=== PATIENT | male | born 2000 | race Caucasian/White ===

== ENCOUNTER 2019-08-21 10:42 | Observation (INO) ==
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
[~2019-08-21 10:42] MED LIST: CEFAZOLIN 2000MG 2,000 MG/15 ML SYR IV SCH; GABAPENTIN 900 MG DOSE PO SCH; LR 15ML/HR IV SCH; LR 60ML/HR IV SCH
[2019-08-21] MEDS ORDERED: fentaNYL citrate 100 MCG/2 ML VIAL ONE ×6 (11:43→17:47)
[2019-08-21] MEDS ORDERED: ONDANSETRON INJ 2 MG/ML 2 ML VIAL ONE ×2 (11:43→15:26)
[2019-08-21] MEDS ORDERED: MIDAZOLAM HCL 1 MG/ML 2ML VIAL ONE (11:43)
[2019-08-21] MEDS ORDERED: LIDOCAINE HCL 2% 2 ML VIAL/AMP(20MG/ML) INFIL ONE (11:43)
[2019-08-21] MEDS ORDERED: PROPOFOL IV EMULSION 10 MG/ML 20 ML VIAL IV ONE ×2 (11:43→13:25)
[2019-08-21] MEDS ORDERED: DEXAMETHASONE SOD INJ 4 MG/ML VIAL ONE ×3 (11:43→18:04)
[2019-08-21] MEDS ORDERED: SCOPOLAMINE 1.5 MG TDSY TD ONE (12:21)
[2019-08-21] MEDS ORDERED: fentaNYL citrate 100 MCG/2 ML VIAL IV PRN (12:22)
[2019-08-21] MEDS ORDERED: ONDANSETRON INJ 2 MG/ML 2 ML VIAL IV PRN ×2 (12:22→20:54)
[2019-08-21] MEDS ORDERED: ePHEDrine sulfate 50 MG/ML AMP IV PRN (12:22)
[2019-08-21] MEDS ORDERED: ATROPINE SULFATE 0.1 MG/ML 10ML SYR IV PRN (12:22)
[2019-08-21] MEDS ORDERED: BUPIVACAINE/EPINEPHRINE 0.25% 1:200,000 30 ML VIAL ONE ×2 (12:24→20:17)
[2019-08-21] MEDS ORDERED: SODIUM CHLORIDE 0.9% PF 50 ML VIAL ONE (12:25)
[2019-08-21] MEDS ORDERED: BUPIVACAINE 0.5 % 5 MG/1 ML PF 10ML VIAL ONE (12:37)
--- NOTE | 2019-08-21 12:58 | History & Physical Bridge Note ---
Date of Service August 21, 2019 History & Physical Bridge Note I have examined the patient, reviewed the History & Physical and in the interval since the performance of the History & Physical I have noted the following changes of clinical significance: no changes noted
[2019-08-21] MEDS ORDERED: CHECK SCOPOLAMINE PATCH PLACEMENT SCH (16:00)
[2019-08-21] MEDS ORDERED: CEFAZOLIN 250 MG/ML 1 GM VIAL ONE (17:04)
[2019-08-21] MEDS ORDERED: CEFAZOLIN 1000MG 1,000 MG/7.5 ML SYR IV ONE (17:45)
[2019-08-21] MEDS ORDERED: CEFAZOLIN 1000MG 1,000 MG/7.5 ML SYR IV SCH (18:00)
[2019-08-21] MEDS ORDERED: CEFAZOLIN 1000MG 1,000 MG/7.5 ML SYR IV STA (18:24)
--- NOTE | 2019-08-21 19:57 | Post Operative Brief Note ---
PG Immediate Post Op with CF Date of Surgery August 21, 2019 Pre & Post Diagnosis Operation Date: 08/21/19 12:30 Pre-Op Diagnosis: Left knee medial collateral ligament tear, left knee lateral meniscus tear Post-Op Diagnosis: Left knee medial collateral ligament tear, left knee lateral meniscus tear I identified the patient and participated in the time-out.: Yes Procedure Operation Date: 08/21/19 12:30 Actual Procedures p Left Knee Arthroscopy With Open Medial Collateral Ligament Repair, Lateral M eniscus Repair And Exam Under Anesthesia(Left) - Arsalan Valencia Surgeon Arsalan Valencia Fondant Puff Maker Starr Estimated Blood Loss 100 Findings Consistent with Post-Op Diagnosis Specimens Specimen Description: None collected per surgeon
--- NOTE | 2019-08-21 20:44 | Anesthesiology Progress Note ---
Date of Service August 21, 2019 Anesthesia Post Procedure Vital Signs Vital Signs: Temp Pulse Resp BP BP Pulse Ox 08/21/19 20:30 86 14 126/72 100 08/21/19 20:20 67 13 128/78 100 08/21/19 20:10 79 16 134/81 100 08/21/19 20:00 74 10 L 125/84 100 08/21/19 19:50 36.1 C L 90 11 L 123/81 100 08/21/19 11:20 36.9 C 78 20 113/68 100 Pain Intensity Left Leg: Pain Intensity: 6 Transfer of Care Handoff Completed per policy Notes Mental Status: alert / awake / arousable and participated in evaluation Patient Amnestic to Procedure: Yes Nausea / Vomiting: adequately controlled Pain: adequately controlled Airway Patency, RR, SpO2: stable & adequate BP & HR: stable & adequate Hydration State: stable & adequate Anesthetic Complications: no major complications apparent and Pt Satisfied with anesthetic care Notes: pt c/o 6/10 pain on awakening though no 2/2 signs of pain. pt feel back to sleep. pt has hx of pain out of proportion to exam and opioid use disorder. given the pt hx and a discussion with dr fide pepper performed a femoral nerve block. us guided. sterile prep/mask/gloves/probe cover. 50 inch needle used. 30 ml 0.25% bupivicaine with epi injected. aspiration negative every 5ml. pt tolerated well
[2019-08-21] MEDS ORDERED: POLYETHYLENE (MIRALAX) 17 GM PACK PO PRN (20:54)
[2019-08-21] MEDS ORDERED: MAGNESIUM HYDROXIDE SUSP 30 ML UDC PO PRN (20:54)
[2019-08-21] MEDS ORDERED: bisacodyL 10 MG SUPP PR PRN (20:54)
[2019-08-21] MEDS ORDERED: DiphenhydrAMINE HCL 50 MG/ML VIAL IV PRN (20:54)
[2019-08-21] MEDS ORDERED: NALOXONE HCL 0.4 MG/1 ML VIAL/CARP IV PRN ×2 (20:54)
[2019-08-21] MEDS ORDERED: ALBUTEROL HFA 8 GM INHALER INH PRN (20:54)
[2019-08-21] MEDS ORDERED: SODIUM CHLORIDE 0.9% 1000ML 1,000 ML IV SCH (20:54)
[2019-08-21] MEDS ORDERED: METOCLOPRAMIDE HCL INJ 5 MG/ML 2 ML VIAL IV PRN (20:54)
[2019-08-21] MEDS ORDERED: HYDROmorphone INJ 1 MG/ML SYRINGE IV PRN (20:54)
[2019-08-21] MEDS ORDERED: FLUTICASONE PROPIONATE NA SPR 16 GM BTL PRN (20:54)
--- NOTE | 2019-08-21 20:55 | Operative Report ---
PG Post Operative Report Pre & Post Diagnosis Operation Date: 08/21/19 12:30 Pre-Op Diagnosis: Left knee medial collateral ligament tear, left knee lateral meniscus tear Post-Op Diagnosis: Left knee medial collateral ligament tear, left knee lateral meniscus tear I identified the patient and participated in the time-out.: Yes Procedure Operation Date: 08/21/19 12:30 Actual Procedures p Left Knee Arthroscopy With Open Medial Collateral Ligament Repair, Lateral Meniscus Repair And Exam Under Anesthesia(Left) - Arsalan Valencia Surgeon Arsalan Valencia Customer Contact Representative Starr Estimated Blood Loss 100 Findings See Below EUA demonstrated range of motion from 0 to 90 degrees after manipulation. He had a grade 3 MCL disruption. The LCL was intact. He had a negative anterior drawer and a positive posterior drawer. Stress fluoroscopy revealed grade 2 PCL tear. Arthroscopic exam demonstrated intact cruciate ligaments. He had obvious widening of the medial compartment and normal lateral compartment opening. There was a flipped bucket-handle lateral meniscus tear that was reducible after releasing scar about the body of the meniscus as it laid in the notch. It was fixed with a combination of all inside along the posterior horn and inside out sutures along the body and outside in sutures along the anterior horn. A double row open MCL repair including the deep and superficial layers, with imbrication of the posterior oblique ligament and capsule and additional 2 limb internal brace was performed. Specimens None Anesthesia Type General Regional Complications none Disposition Accompanied Patient To Recovery: No Disposition: Recovery Room Indications 18-year-old male who sustained a closed segmental femur fracture in addition to a multi-ligament knee injury resulting in MCL avulsion with Stener lesion. He was referred to our orthopedic sports clinic to address his lateral meniscus tear and MCL avulsion. Given his blocking motion and flipped lateral meniscus and acute MCL avulsion, I did recommend subacute surgery to address these injuries before they were not salvageable for primary repair. We discussed evaluation of the knee under anesthesia in regards to his cruciate integrity. We discussed this might be staged surgery to address his multi-ligament injury, depending on the outcome of the surgery. He was coming by his parents in clinic. They all demonstrated good understanding and asked appropriate questions. Informed consent was obtained in clinic. Description of Procedure On the day of surgery, the patient was greeted in the preoperative holding area. The informed consent was reviewed and confirmed by myself and the patient. The patient identified the surgical site and was marked by me. The patient was then turned over to anesthesia. Anesthesia performed a regional anesthetic block with excellent effect. Patient was then taken to the operating place upon the OR table and anesthesia was induced. The airway was secured. He was placed supine. All bony prominences well-padded. Surgical timeout was called by the circulating nurse and verified by all present. We initiated the case by insufflation the joint with a solution of 60 cc containing 30 cc of quarter percent Marcaine with epinephrine diluted with 30 cc of normal saline. Then performed a manipulation under anesthesia which did achieve an additional 30 degrees of motion to at least 90. At that point it felt that it is extensor mechanism was supple. I did not feel comfortable pushing additionally while he has a segmental femur fracture and a recently traumatized extremity. He had adequate motion for the arthroscopic meniscal repair. Using large C-arm fluoroscopy of a thorough diagnostic examination anesthesia wa s performed with the findings listed above. Essentially had a grade 3 MCL injury and grade 2 PCL injury. We then proceeded to the arthroscopic portion. Standard anterolateral portal was created and the scope trocar was introduced. Diagnostic arthroscopy was carried out. We created a standard working portal medially using a spinal needle for localization. A probe is introduced and that that diagnostic fluoroscopy was conducted with the findings listed above. We direct our attention immediately to the lateral compartment. The flipped lateral meniscus bucket-handle tear was evident. We attempted meniscal repair by first reducing bucket-handle meniscus tear. It did require sequential elevation using a Castile along the ACL where it was scarred against. Once it freed up it was reducible. We then prepared the meniscal capsular junction using a motorized shaver and ball rasp to create a bleeding soft tissue bed for repair. We started by placing 1 all inside suture anchor in the back. Unfortunately it did not hold while we did the open approach. The knee was positioned at 90 degrees to expose the lateral border. A longitudinal incision was made in line with the posterior aspect of the LCL. Soft tissue dissection was carried out and Bovie electrocautery was used for hemostasis. The posterior aspect of the IT band was exploited. We created a window which allowed dissection along the posterior capsule with caution for the nearby peroneal nerve. The investing fascia from the biceps was opened to allow access to this window. A Phoenix retractor was then placed just anterior to the lateral gastroc head to protect the posterior structures. Then returned to the arthroscopic portion. Again, the all inside sutures did not hold. We had to re-reduce the bucket-handle. Once was reduced we used the Arthrex zone navigator to begin our repair. We placed several vertically oriented mattress sutures along the superior border of the body. We then placed 1 just anterior to the popliteal hiatus. We then placed another vertical mattress suture on the underside of the tibial aspect of this body. All sutures were retrieved through the open incision. Some of the sutures did end up percutaneous anteriorly and away from the nerve. We then used all inside suture technique x3 anchors along the posterior horn with 2 on the femoral side and 1 on the tibial side. This reduced the tissue well. We then pinned over to the anterior horn and the meniscocapsular separation was evident. We created a small portal size incision anterior laterally on the knee. This was used to place 2 outside in repair stitches using a micro-suture lasso and spinal needle. Fiber tape suture was used by shuttling. This completed our suturing of the meniscus. We then exited the joint with the arthroscopic instrument. I then retrieved all sutures through the posterior lateral incision as well as the accessory anterolateral incision. Firm knots were tied in an open manner reducing the tissue well. The arthroscope was placed back in the knee and the postrepair arthroscopic exam demonstrated a stable meniscus with good vertically oriented sutures on the femoral and tibial side. The popliteal tendon was not involved in repair. There is no significant cartilage loss however there was distinct softening with grade 2 changes over the lateral femoral condyle in the area of the injury corresponding with the MRI. We then evaluated the cruciate ligaments. The appear to be intact with abundant synovium. The ACL had normal behavior through it dynamic exam. The PCL was well covered in synovium and I did not see the benefit to taking that down to evaluate it. Appear to be under normal tension on the femoral side. The tibial side was able to be evaluated through the Gi lcrest portal given the MCL laxity. The medial compartment is reevaluated and again there was no chondral or meniscal damage. There was obvious disruption of the deep MCL. We then thoroughly irrigated the lateral compartment wounds. The knee was then repositioned slight external rotation knee flexion of 30 degrees still revealed the medial side of the knee. A longitudinal incision was made for the medial epicondyle distally onto the midline of the medial tibia. Soft tissue dissection was carried out with Bovie used for electrocautery. No tourniquet was used due to his history of vascular procedure. We exposed the sartorial fascia was opened in line and this was carried up to the epicondyle. Was also carried down distally towards the insertional footprint of the MCL underneath the hamstrings. The hamstrings were retracted posteriorly and inferiorly to expose the footprint. The MCL tissue was scarred and balled up on the proximalmost aspect of the footprint. A aguilar elevator was used to elevate this sleeve en bloc. There was disruption of the deep fibers that was evident. I was able to separate these layers to allow reapproximated the deep layer or the meniscotibial ligament. We then placed 2 three-point 0 suture tack anchors of bio composite material, which were double loaded along the tibial rim with 1 anterior and one posterior. The sutures were then passed with a free needle up through the meniscotibial ligament and to a corresponding position on the superficial tissue to go through and through both layers. These are spread out along the torn portion of the deep meniscotibial ligament. The posterior sutures were then passed through the identifiable layer the posterior oblique ligament. These were passed in a pants over vest fashion to create an imbric ation of this given his laxity. Additional mattress sutures were placed in a similar fashion in the posterior oblique ligament connecting it to the more superficial portion of the MCL. Once had good control of the sleeve firm knots were tied down with the knee held at 30 degrees of flexion and varus stress. This repaired our deep and superficial layers down proximally. Then cleared out the footprint and plan to put 2 additional anchors anterior distal and posterior proximal. We then moved to the femoral side. The epicondyle was exposed. Fluoroscopy was used to identify the insertional site of the origin of the MCL. This was just posterior to the epicondyle. Drill pins were placed at the anchor positions to ensure isometry. Original medial epicondyle pin was accurate. We then drilled the socket over a guidepin to 4.5 mm diameter. It was then tapped for 4.75 swivel lock anchor which was deployed into this MCL origin space after being preloaded with long fiber tape suture. 2 limbs were then patent taken distally. We then performed our double row MCL repair. The suture tails of the 3-0 suture tack anchors were taken in a crossing pattern distally. The 2 most medial limbs were crisscrossed distally to our distal anchors. The anterior inferior anchor contained one limb of the internal brace while the posterior superior anchor contained the other. The suture tails from our repair stitches were tensioned with varus stress at 0 and 30 degrees respectively. The internal brace limbs were independently tensioned for more laxity, with greatest tension in full extension. The posterior superior 1 was placed in slight degree more of extension to replicate support for the posterior oblique ligament. Then thoroughly irrigated this open surgical site of the MCL. The investing sartorius layer was approximated using 0 Vicryl suture in a running and locking repair. Subcutaneous tissues were then approximated using 2-0 Vicryl suture. Final skin closure was performed using brando. The lateral incision was then thoroughly irrigated and closed in a similar fashion, with 0 Vicryl suture repairing the fascial layer, followed by 2-0 sutures in the deep dermis and subcuticular layer. Final skin closure was performed using brando. The portals were closed with interrupted 3-0 Monocryl suture with a buried knot. Wounds are dressed with sterile Xeroform, sterile gauze, sterile ABD and web roll. The dressing was then contained by a KESHA hose applied to the lower extremity. Standard range of motion brace locked in full extension was then applied. It was set for range of motion 0 to 90 degrees when unlocked. Patient tolerated procedure well without tourniquet. He was extubated the operative without complication and transported to the recovery area in good condition. Disposition: The patient will be flatfoot weightbearing for 4 weeks with the brace locked in full extension. He will moved to partial weightbearing for weeks 5 and 6 with progressive weightbearing after 6 weeks. He will have range of motion limited from 0-90 for the first 6 weeks. After that he will need some focused therapy to achieve improve range of motion given his stiffness. He will use routine postoperative pain management with supplemental block as needed. He will be admitted observation given the hour the evening, degree of blood loss from his recent trauma surgeries and today's anesthetics, and expected postoperative pain. For DVT prophylaxis, we will restart his Lovenox 30 mg every day on postop day 1 with the addition of baby aspirin. At 6 weeks postop he can transition to full dose aspirin until 6 weeks post the surgery. Surgical outcome and findings were explained to his parents. I attest to the content of the Intraoperative Record and any orders documented therein. Any exceptions are noted below.
[2019-08-21] MEDS ORDERED: MONTELUKAST SODIUM 10 MG TABLET PO SCH (21:00)
[2019-08-21] MEDS ORDERED: DOCUSATE SODIUM 100 MG CAP PO SCH (21:00)
[2019-08-21] MEDS ORDERED: SENNA 8.6 MG TAB PO SCH (21:00)
--- NOTE | 2019-08-21 21:19 | Fluoroscopy Report ---
FL knee LT 1 or 2V HISTORY: 18 years-old Male LEFT KNEE acute left knee pain COMPARISON: CT the left femur 08/03/2019 TECHNIQUE: 10 spot fluoroscopic images of the left knee were obtained utilizing 36.8 seconds fluorosc opy time FINDINGS: Partially imaged medullary nubia with 2 distal cannulated screws about the distal femur. The visualized hardware appears intact. No acute fracture, dislocation or opaque foreign body identified. On the la st image, there is a linear metallic density structure overlying the posterior aspect of the femoral condyles. Expected post procedural soft tissue swelling and deep tissue air. IMPRESSION: Fluoroscopic assistance as above. Please see procedural report for further details. ACT 112: Negative or not required by law. The above report was generated using voice recognition software. It may contain grammatical, syntax o r spelling errors. Electronically signed by: Isiah Crenshaw M.D. 08/21/2019 9:18 PM
[2019-08-21] MEDS ORDERED: CYCLOBENZAPRINE HCL 10 MG TAB PO PRN (21:28)
[2019-08-21] MEDS: OXYCODONE HCL IR 5 MG TAB (IMMEDIATE RELEASE) PO PRN (22:25)
[2019-08-21] MEDS: DOCUSATE SODIUM 100 MG CAP PO SCH (22:27)
[2019-08-21] MEDS: ACETAMINOPHEN 1,000 MG/100 ML VIAL IV SCH (22:27)
[2019-08-21] MEDS: CEFAZOLIN 2000MG 2,000 MG/15 ML SYR IV SCH (22:27)
[2019-08-22] MEDS: OXYCODONE HCL IR 5 MG TAB (IMMEDIATE RELEASE) PO PRN ×4 (02:26→15:56)
[2019-08-22 05:25] LABS: Basophils # (auto) 0.02 K/uL (0-0.2); Basophils % (auto) 0.1 %; Hematocrit (blood only) 31.1 % (42-52); Hemoglobin 10.4 g/dL (14.0-18.0); Immature Granulocytes # (auto) 0.05 K/uL (0.00-0.02); Immature Granulocytes % (auto) 0.3 %; Lymphocytes # (auto) 1.79 K/uL (1.2-3.4); Lymphocytes % (auto) 9.6 %; Mean Corpuscular Hemoglobin 28.4 pg (25-34); Mean Corpuscular Hgb Conc 33.4 g/dL (32-36); Mean Platelet Volume 10.6 fL (7.4-10.4); Monocytes # (auto) 1.65 K/uL (0.11-0.59); Monocytes % (auto) 8.9 %; Neutrophils # (auto) 15.08 K/uL (1.4-6.5); Neutrophils % (auto) 81.1 %; Platelet Count 312 K/uL (130-400); RDW Coefficient of Variation 14.3 % (11.5-14.5); RDW Standard Deviation 44.8 fL (36.4-46.3); Red Blood Count 3.66 M/uL (4.7-6.1); White Blood Count 18.59 K/uL (4.8-10.8)
[2019-08-22 05:58] LABS: BUN Creatinine Ratio 14.1 (10-20); Calcium 8.5 mg/dl (8.5-10.1); Creatinine Clr Calc Pharmacy 125.1 ml/min; Est GFR (African American) 145.7; Est GFR (Non-African American) 125.7; Potassium 4.1 mmol/L (3.5-5.1)
[2019-08-22] MEDS: CEFAZOLIN 2000MG 2,000 MG/15 ML SYR IV SCH (06:14)
[2019-08-22] MEDS: ACETAMINOPHEN 1,000 MG/100 ML VIAL IV SCH ×2 (06:15→13:06)
[2019-08-22] MEDS: DOCUSATE SODIUM 100 MG CAP PO SCH (07:41)
[2019-08-22] MEDS: ASCORBIC ACID 500 MG TAB PO SCH ×2 (07:41→16:14)
--- NOTE | 2019-08-22 07:46 | Anesthesiology Progress Note ---
Date of Service August 22, 2019 Anesthesia Post Procedure Vital Signs Vital Signs: Temp Pulse Pulse Resp BP BP Pulse Ox 08/22/19 03:35 36.7 C 95 H 16 125/65 99 08/21/19 23:55 36.5 C 86 16 131/70 100 08/21/19 22:54 85 14 131/72 100 08/21/19 21:58 36.4 C L 85 14 125/67 100 08/21/19 21:30 36.5 C 83 18 131/72 100 08/21/19 20:55 36.4 C L 87 18 145/75 H 100 08/21/19 20:40 36.3 C L 86 14 131/67 100 08/21/19 20:30 86 14 126/72 100 08/21/19 20:20 67 13 128/78 100 08/21/19 20:10 79 16 134/81 100 08/21/19 20:00 74 10 L 125/84 100 08/21/19 19:50 36.1 C L 90 11 L 123/81 100 08/21/19 11:20 36.9 C 78 20 113/68 100 Pain Intensity Left Leg: Pain Intensity: 6 Notes Mental Status: alert / awake / arousable and participated in evaluation Patient Amnestic to Procedure: Yes Nausea / Vomiting: adequately controlled Pain: adequately controlled Airway Patency, RR, SpO2: stable & adequate BP & HR: stable & adequate Hydration State: stable & adequate Anesthetic Complications: no major complications apparent and Pt Satisfied with anesthetic care
[2019-08-22 07:49] VITALS: O2SAT 100
--- NOTE | 2019-08-22 07:53 | Orthopedic Progress Note ---
Date of Service August 22, 2019 Assessment & Plan (1) S/P MCL repair: (2) S/P lateral meniscal repair: Continue PT/OT Dressing: Will not need to change dressings until 3 days post op unless new evidence of discharge/drainage seen through dressings. Will continue to monitor. Delta will be removed 2 weeks post op in Orthopedic clinic. Flat foot weight bearing as tolerated with strict extension bracing locked in full extension extension. For DVT prophylaxis, we will restart his Lovenox 30 mg every day on postop day 1 with the addition of baby aspirin. At 6 weeks postop he can transition to full dose aspirin until 6 weeks post the surgery. Continue pain medication as needed Continue to monitor blood. Hemoglobin was 10.4 today (08/22/19). Supervising Physician Co-Signing Physician Notes ATTENDING NOTE: Erlin Clements PA-C assisted in caring for this patient. I agree with his note. I confirmed the history and performed the physical exam myself. The assessment and plan is my own. Ana Rolon is a 18 year old male who is one day s/p left knee arthroscopy with open medial collateral ligament repair, lateral meniscus repair. He is with his father this morning. Patient states he did not get a good night of sleep due to post surgical pain as well as the constant traffic in and out of his room. He was about to receive his second round of oxycodone this morning. He has not yet seen PT but they plan to visit with him today. He denies numbness or tingling in his left lower extremity. He denies any fever, chills, or sweats. He is anxious to go home and has no other complaints. Review of Systems Constitutional: no fever, no chills and no problem reported Eyes: as per Subjective / HPI; no problem reported Ear, Nose, Mouth, Throat: as per Subjective / HPI; no problem reported Respiratory: as per Subjective / HPI; no problem reported Cardiovascular: no edema and no problem reported Gastrointestinal: no nausea, no vomiting and no problem reported Genitourinary: no problem reported Musculoskeletal: as per Subjective / HPI Integumentary: as per Subjective / HPI; no problem reported Neurologic: no tingling, no paresthesia and no problem reported Psychiatric: no problem reported Endocrine: as per Subjective / HPI Hematologic / Lymphatic: as per Subjective / HPI Allergy / Immunological: no problem reported Physical Exam Musculoskeletal: Patient was laying comfortably in exam bed in mild distress due to lack of sleep. He is A+0x3. He father is sitting in a chair beside him. Left lower extremity: The knee immobilizer is well fit and opened for exam. The dressings had no evidence of discharge/drainage. Dressings were kept in place today. He has positive tibialis anterior, gastrocsoleus, and EHL activity. 2+ distal pulse appreciated with less than 2 seconds capillary refill of his left lower extremity digits. He did have intact sensation to light touch. Results & Data ([facility]) Vital Signs (Past 12 Hours) Vital Signs Temp Pulse Pulse Resp BP Pulse Ox 08/22/19 07:47 36.7 C 100 H 69 18 120/64 100 08/22/19 03:35 36.7 C 95 H 16 125/65 99 08/21/19 23:55 36.5 C 86 16 131/70 100 08/21/19 22:54 85 14 131/72 100 08/21/19 21:58 36.4 C L 85 14 125/67 100 08/21/19 21:30 36.5 C 83 18 131/72 100 08/21/19 20:55 36.4 C L 87 18 145/75 H 100 08/21/19 20:40 36.3 C L 86 14 131/67 100 08/21/19 20:30 86 14 126/72 100 08/21/19 20:20 67 13 128/78 100 08/21/19 20:10 79 16 134/81 100 08/21/19 20:00 74 10 L 125/84 100 PG Care Time/CCT Total # of Minutes Spent Total Time Spent with Patient: Total time spent is greater than 50% in coordination of care (as documented) at patient's floor/unit and/or counseling patient: Coding Level of Care Code 46578 Subseq Obs Care Lvl 1 Diagnoses S/P MCL repair Z98.890 S/P lateral meniscal repair Z98.890
[2019-08-22] MEDS ORDERED: MULTIVITAMIN TAB PO SCH (09:00)
[2019-08-22] MEDS ORDERED: ASPIRIN 81 MG ECTAB PO SCH (09:00)
[2019-08-22] MEDS ORDERED: PANTOprazole 40 MG TAB PO SCH (09:00)
[2019-08-22 10:39] VITALS: TEMP 97.9
[2019-08-22] MEDS ORDERED: ENOXAPARIN INJ 30 MG/0.3 ML SYR SQ SCH (14:00)
[2019-08-22 15:36] VITALS: BP 121/58
--- NOTE | 2019-08-22 16:05 | Discharge Summary ---
Date of Service August 22, 2019 Admission HPI Per Admitting Provider He was admitted postoperatively after undergoing arthroscopic and open lateral meniscus and MCL repair. Admission Exam Per Admitting Provider See clinic note and admission H&P. Principal Diagnosis Left knee multi-ligament knee injury, MCL tibial avulsion, displaced bucket- handle lateral meniscus tear. Discharge Exam Well-appearing, no acute distress, sitting in bed with his leg well supported. Calm and conversant. Respiratory normal respiratory effort; no respiratory distress Cardiovascular Rate/Rhythm: regular rate Vessels: posterior tibial pulses present and dorsalis pedis pulses present Extremities: no pedal edema Musculoskeletal Left lower extremity: The dressing is clean dry and intact. The brace was well fit. He has positive dorsiflexion, plantarflexion, EHL activity. Sensation is grossly intact to light touch in all lower extremity distributions. Skin no rashes, warm and dry normal turgor Psychiatric A+Ox3, euthymic affect Discharge Data Allergies Allergy/AdvReac Type Severity Reaction Status Date / Time amoxicillin Allergy Intermediate RASH Verified 08/21/19 11:11 clavulanic acid Allergy Intermediate RASH Verified 08/18/19 09:50 Consultations 08/21/19 20:54 Consult Case Management - Discharge Planning Routine Procedures Performed Operation Date: 08/21/19 12:30 Actual Procedures p Left Knee Arthroscopy With Open Medial Collateral Ligament Repair, Lateral Meniscus Repair And Exam Under Anesthesia(Left) - Arsalan Valencia Ordered Studies 08/21/19 12:30 FL fluoroscopy <1hr Routine FL knee LT 1 or 2V Routine 08/21/19 13:03 US - OR guided needle placemen Routine Hospital Course (1) S/P lateral meniscal repair: Patient was admitted postoperatively after undergoing arthroscopic assisted and open lateral meniscus repair as well as medial collateral ligament open repair. He remained stable overnight. Postoperative laboratory work demonstrated an acceptable level of his hematocrit. He had started again on his Lovenox. Pain is been managed with oral medications since the surgery. He was found stable for discharge after a brief period of observation. (2) S/P MCL repair: (3) Injury of posterior cruciate ligament of left knee: (4) Knee instability: (5) Acute lateral meniscus tear of left knee: (6) Complete tear of MCL of knee: Total Time Total Time Spent Total Time Spent (In Minutes): 30 Discharge Plan Discharge Items Patient Disposition: Home - Self-Care Reason For Visit: LEFT KNEE MEDIAL COLLATERAL LIGAMENT TEAR, LATERAL Discharge Diagnosis: MCL tear, lateral meniscus displaced bucket handle tear s/p repairs Condition on Discharge: Good Activity: Per Instructions section Non-emergency contact: Surgeon Call non-emergency contact if: you have any medication questions, your pain is not controlled, your temperature is above 101 and your wound has increased drainage Follow-up/Referrals: Sanchez Ware, [Primary Care Provider] - Diet: Regular Addtl Attending Provider Instructions: Arsalan Valencia MD [facility] Orthopedic Surgery [address] [facility], [place] [address] BRACE: Keep the brace in place unless the limb is fully supported in a resting position. Always wear your brace locked in extension when walking, standing, or transferring. You may open your brace for careful hygiene and ROM exercises described below. The brace can be used to protect motion. Unlock the ROM brace with the 2 buttons on either side of the knee for ROM exercises. Lock again in full exten jaky to get up and walk. Continue to wear the brace until further instructions at your post-op appointment with Ortho. MOTION: You always want to be sure to get the knee completely straight back of knee towards the bed. 0-90 degrees: Often used to protect meniscal or cartilage repairs. The brace will be set to stop at 90 when unlocked. WEIGHTBEARING: Flat-Foot Weightbearing means you may place your foot on the ground, but do not transfer weight or stride on the leg. ACTIVITY: Please perform ROM (Range of Motion) exercises at least three times per day: 1. Ankle plantarflexion (gas pedal down) and dorsiflexion (pull foot up) 2. Toe flexion/extension wiggle toes 3. Straight leg raises hold your quads tight, lift your heel off the bed 12- 15 inches while keeping the knee straight. Repeat. 4. Knee flexion/extension lie with leg flat, drag heel up the bed towards your buttocks, slowly return to flat position, try to get your leg completely straight (try to touch the back of your knee to the bed) WOUND CARE: Leave the dressing in place and keep the area clean and dry. After 3 days, you may remove your dressing. DO NOT REMOVE ANY SUTURES or RUEL. After removing your dressing, you may begin to shower. Do not soak the incision. Allow gentle soap and water to run over the wound(s) and pat dry. Please cover the incision(s) with a clean, dry dressing, as needed. Do not use any ointments or topical medications unless directed by your surgeon. Do not submerse the incisions in water no pools, oceans, lakes, jacuzzis, bathtubs, etc for at least 4 weeks. PAIN CONTROL If you had an ANESTHETIC BLOCK, the effects will wear off in 6-12 hours. When you feel sensation returning, be ready with a pain medication. You may experience rebound pain for a few hours before pain subsides. Stay ahead of the pain with your medications. Elevation is your best friend. Elevate the affected extremity above the level of your heart. Swelling is simply fluid. Elevation will allow the fluid to run down hill, reduce swelling, and decrease pain. The affected extremity should be continuously elevated for the first 2-3 days, with the exception of bathroom, hygiene, etc. You may be prone to swelling for several weeks, or until you return to normal function with your leg. Use ice (or cryocuff if you have one). Use for 30 minutes per hour. Do not leave in place longer than 30 minutes, especially when your block is in effect, to prevent frostbite or thermal injury. Medications: 1. Oxycodone (OxyIR) 1-2 tablet(s) orally every 4 hours for pain as needed. Use with Tylenol. Begin tapering OxyIR as soon as possible: reduce from 2 to 1 pills per dose, then spread out the doses over greater time intervals, then try to use only for therapy or for comfort while sleeping. Continue to use regular Tylenol until pain subsides. 2. Tylenol (325mg): 3 tablets every 8 hours orally. Regular dosing of Tylenol is an important part of your baseline pain control. Do not taper Tylenol until you have successfully tapered off of regular OxyIR. Do not take more than 3000mg of Tylenol per day. 3. Zofran 1 tablet orally every 6 hours as needed for nausea related to anesthesia, pain, and narcotic medications CONSTIPATION: Narcotic pain medications can slow down your digestive track, leading to constipation. Stay hydrated. While taking narcotics, the use of stool softeners is recommended. Two over the counter options are: 1. Colace (100mg): take 1-2 tabs twice daily to avoid constipation from OxyIR or other narcotics. 2. Miralax 1 tablespoon in a glass of water 2 times daily until normal bowel movements FOLLOWUP: 1. Ortho Clinic: You should be seen in 10-14 days. Please call immediately to schedule if you do not have an appointment. 2. PHYSICAL THERAPY: A consult will be placed specifically for your surgery thru [facility]. Please call the physical therapist soon to schedule an appointment. It is OK to be seen by your therapist before the ortho clinic followup. Please take the specific directions provided to you on the day of surgery. WHEN TO CALL. If you develop any of the following symptoms, please contact the Orthopedic Clinic at [phone]: MENISCAL REPAIR PROTOCOL PHASE ONE: WEEK 1-6 Following surgery, the patient will be FFWB for 4 weeks. A hinged brace will be worn to limit motion to 90 for the 1st 6 weeks. The brace must be locked in extension during ambulation. AAROM as tolerated 0-90 only for 6 weeks. PWB (50%) can begin at week #4 with brace locked in full extension. WBAT beginning at Week 6 with brace open 0-90. Weeks 6-8: can carefully progress beyond 90should be gradual. Wean from brace. ROM Heel slides; follow precautions (0-90 week 1-6) Hamstring and calf stretch hold 30 sec Prone hangs to gain full knee extension STRENGTH AND NM CONTROL Quad sets with EMS or biofeedback the more the better; 100X/day SLR 4 way SAQ Seated hip flexion Multi-hip MODALITIES EMS or EGS if needed for quad facilitation or swelling, respectively Ice following exercise and initially, every hour for 10-15 minutes, with knee in full extension *The hamstrings attach to the posterior portion of the meniscus and therefore, resistive hamstring activity should be avoided for at least 6 weeks post-op! *Pt should perform HEP 3X/day GOALS OF PHASE 1: Control pain, inflammation, and effusion Adequate quad/VMO contraction Independent in HEP NWB, with brace locked out and using crutches Pending Studies at Discharge: No Stand-Alone Forms: [facility], Opioid Pain Management, Work/School Release (Inpt) Medications and DC Order Prescriptions: New ondansetron HCl [Zofran] 4 mg tablet 4 mg PO DAILY PRN (Reason: nausea and vomiting) Qty: 10 RF: 0 oxycodone 5 mg tablet 5 - 10 mg PO Q4H PRN (Reason: pain) Qty: 30 RF: 0 Continued cyclobenzaprine 10 mg tablet 10 mg PO Q8H PRN (Reason: Muscle Spasm) RF: 0 acetaminophen [Tylenol] 325 mg Tablet 650 mg PO Q6H PRN (Reason: Pain) RF: 0 docusate sodium [Colace] 100 mg Capsule 100 mg PO BID RF: 0 montelukast [Singulair] 10 mg tablet 10 mg PO HS RF: 0 polyethylene glycol 3350 [Miralax] 17 gram/dose Powder 17 g PO DAILY RF: 0 albuterol sulfate 90 mcg/actuation HFA aerosol inhaler 2 puff inhalation Q4H PRN (Reason: Wheezing) RF: 0 fluticasone propionate 50 mcg/actuation spray,suspension 2 spray INTRANASAL DAILY PRN (Reason: Allergy Symptoms) RF: 0 enoxaparin 30 mg/0.3 mL syringe 30 mg subcut .MIDDAY RF: 0 Humira Pen 40 mg/0.8 mL pen injector kit 40 mg SUBCUT DIRECTED RF: 0 aspirin [Aspirin Low Dose] 81 mg Tablet,Delayed Release (Dr/Ec) 81 mg PO QAM RF: 0 Discontinued oxycodone-acetaminophen [Percocet] 5-325 mg Tablet 1 tab PO Q6H PRN (Reason: Pain) RF: 0 Discharge Orders: Discharge Order (Routine); Ordered 08/22/19 Ordered By: Arsalan Napier/Other Patient Handouts: Heel Slides Admission Data Admit Date/Time: 08/21/19 19:59 Attending Provider: Arsalan Valencia Admit Provider: Arsalan Valencia Primary Care Provider: Snachez Ware Coding Level of Care Code 34827 OBS Care - Discharge Diagnoses S/P lateral meniscal repair Z98.890 S/P MCL repair Z98.890 Injury of posterior cruciate ligament of left knee S89.92XA Knee instability M25.369 Acute lateral meniscus tear of left knee S83.282A Complete tear of MCL of knee S83.419A
[2019-08-22 16:10] VITALS: PULSE 100
== END 2019-08-22 18:00 | disposition home or self-care (01) ==
LOC: 3E 10:42 → ASU 10:42